=== PATIENT | male | born 2000 | race American Indian/Alaskan Native ===

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

== ENCOUNTER 2021-02-06 13:56 | Outpatient (CLI) | payer OTHER ==
--- NOTE | 2021-02-06 14:57 | XRay Report ---
CHEST 2 VIEWS INDICATION: CP, SOB. COMPARISON: none FINDINGS: Support devices: None. Heart: Within normal limits. Lungs/pleura: No acute air space or interstitial disease. No pneumothorax. Additional findings: None. IMPRESSION: No acute findings. Signer Name: Parth Guerrero Jr, MD Signed: 02/06/2021 2:52 PM Workstation Name: [id number]
[2021-02-06 15:45] LABS: Chol/HDL Ratio 3.06 %
[2021-02-06 16:03] LABS: ABG HCO3 26.2 mmol/L (20.0-26.0); ABG Methemoglobin 0.5 % (0.0-1.5); ABG PCO2 43.3 mm Hg; ABG PH 7.399 pH Units (7.350-7.450)
--- NOTE | 2021-02-06 16:08 | Vascular Lab Report ---
DUPLEX DOPPLER LOWER EXTREMITY VEINS, BILATERAL INDICATION / CLINICAL INFORMATION: SWELLING, shortness of breath, history of renal disease TECHNIQUE: Duplex doppler imaging was performed through the veins of both lower extremities using carmen ous compression and other maneuvers. COMPARISON: None available. FINDINGS: RIGHT COMMON FEMORAL VEIN: Negative. RIGHT FEMORAL VEIN: Negative. RIGHT POPLITEAL VEIN: Negative. RIGHT CALF VEINS: Negative. LEFT COMMON FEMORAL VEIN: Negative. LEFT FEMORAL VEIN: Negative. LEFT POPLITEAL VEIN: Negative. LEFT CALF VEINS: Negative. ADDITIONAL FINDINGS: None. IMPRESSION: No sonographic evidence for DVT in either lower extremity. Signer Name: Jim Galdamez MD Signed: 02/06/2021 4:04 PM Workstation Name: [id number]
== END 2021-02-06 13:57 | disposition home or self-care (01) ==
LOC: VAS 13:56
PROVIDERS: ATTEND Internal Medicine
DX: I12.9 Hypertensive chronic kidney disease with stage 1 through stage 4 chronic kidney disease, or unspecified chronic kidney disease (principal); R06.00 Dyspnea, unspecified; R07.9 Chest pain, unspecified; I10 Essential (primary) hypertension; K21.9 Gastro-esophageal reflux disease without esophagitis; J30.9 Allergic rhinitis, unspecified; N18.9 Chronic kidney disease, unspecified
CPT/HCPCS: 36415; 36600; 71046; 80061; 82803; 84436; 84439; 84443; 85379; 93970